=== PATIENT | female | born 1950 | race Caucasian/White ===

== ENCOUNTER → 2017-02-28 | Outpatient (CLI) | payer MEDICARE, BC, OTHER ==
[~2017-02-28] MED LIST: CLARITIN10 M2 PO; FISH OIL 1,01 CAP.EC PO; HYDROCHLOROTHIA25 MG PO; IBUPROFEN PO; LYRICA75 MG PO; SINGULAIR PO; SUPER B COMPLEX1 CAP PO; VITAL-D RX TABL1 TAB PO; ZOCOR PO
--- NOTE | ~2017-02-28 | MY11 ---
[facility] A Service of [facility] RADIOLOGY TEXT RESULTS PATIENT: BETTYE PRATHER LOCATION: [facility] : 48 UNIT #: [id number] AGE: [address]: Femi Gaxiola MD SEX: F ORDER DR: [id number] [facility]. [place], [place] [address] [id number] O MR#: [id number] Acc #: [id number] NAME: BETTYE PRATHER : 1950 SEX: F STUDY DATE/TIME: 02/28/2017 11:25 UNIT: [facility] ROOM: STUDY DESCRIPTION: MY Mammogram Screening Dig Nathen Attending Physician: Femi Gaxiola M.D. Referring Physician: Femi Gaxiola M.D. Ordering Physician: Femi Gaxiola M.D. Primary Care Physician: Femi Gaxiola M.D. MEDICAL IMAGING REPORT This report is preliminary unless electronic signature is present EXAM Bilateral digital screening mammogram with CAD 02/28/2017 INDICATION 66-year-old female for routine screening. No reported problems. No personal or family history of breast cancer. History of breast reduction in 1972 and reconstruction in 2006 with saline implant placement bilaterally. TECHNIQUE CC, MLO and implant displaced views of the breasts were obtained and reviewed with an FDA-approved CAD device. COMPARISON 02/02/2016, 10/05/2014, 02/06/2012. FINDINGS Bilateral retroglandular silicone implants remain present (the patient indicates saline implants are present but these appear to represent silicone implants). Breast parenchyma is composed of scattered fibroglandular densities and unchanged. There is no new dominant nodule, mass or suspicious cluster of microcalcifications. Benign calcifications are present. Stable contour abnormality of the left breast implant. IMPRESSION Benign screening mammogram. Silicone implants bilaterally. Stable contour abnormality of the left breast implant without distinct evidence of extracapsular silicone at this time. 1-year followup recommended. Patients over the age of 40 are entered into a reminder system with target due date for the next mammogram. A result letter will also be sent to the patient. STS. [facility] A Service of [facility] RADIOLOGY TEXT RESULTS PATIENT: BETTYE PRATHER LOCATION: [facility] : 48 UNIT #: [id number] AGE: [address]: Femi Gaxiola MD SEX: F ORDER DR: BIRADS: 2 Benign finding Dictated by... Ac Cosby M.D. THIS IS AN ELECTRONICALLY VERIFIED REPORT Ac Cosby M.D. at 02/28/2017 5:12 PM CONSUELO/ruddy TD: 02/28/2017 13:50 JOB #: [id number] MEDICAL IMAGING REPORT Page 1 of 1 COPY
== END | disposition home or self-care (01) ==
LOC: CWCC 10:39
DX: Z12.31 Encounter for screening mammogram for malignant neoplasm of breast (principal); Z98.82 Breast implant status
CPT/HCPCS: G0202